=== PATIENT | female | born 1990 | race Caucasian/White ===

== ENCOUNTER 2017-03-21 02:15 | Outpatient (CLI) | payer MEDICAID ==
[~2017-03-21] VITALS: Ht 157.5 cm; Wt 63.0 kg
[~2017-03-21 02:15] MED LIST: ZOF8 PO
[2017-03-21 02:27] VITALS: Ht 157.5 cm; Wt 63.0 kg
[2017-03-21] MEDS ORDERED: PRENAT PO (02:33)
[2017-03-21] MEDS ORDERED: ACET325T33 PO (02:33)
[2017-03-21] MEDS ORDERED: ONDANSETRON 4 MG INJ IV STA (02:51)
[2017-03-21] MEDS ORDERED: LACTATED RINGER'S 1,000 ML IV ONE (03:00)
[2017-03-21 03:14] LABS: ADD SCAN DIFF NO
[2017-03-21 03:34] LABS: ALBUMIN 3.4 g/dl (3.3-4.9)
[2017-03-21 03:35] LABS: POTASSIUM 3.4 mmol/L (3.5-5.1)
[2017-03-21 03:37] LABS: BILIRUBIN,INDIRECT 0.4 mg/dl (0-1.1); BILIRUBIN,TOTAL 0.4 mg/dl (0.2-1.3); CREATININE 0.48 mg/dl (0.44-1.00); TOTAL PROTEIN 6.8 g/dl (6.1-8.1)
[2017-03-21 03:38] LABS: CALCIUM 8.7 mg/dl (8.4-10.2)
[2017-03-21 03:54] LABS: URINE BILIRUBIN (Dip) NEGATIVE (NEGATIVE); URINE BLOOD (Dip) NEGATIVE (NEGATIVE); URINE COLOR LT. YELLOW (YELLOW); URINE GLUCOSE (Dip) NEGATIVE (NEGATIVE); URINE KETONES (Dip) NEGATIVE (NEGATIVE); URINE LEUKOCYTE ESTERASE (Dip) NEGATIVE (NEGATIVE); URINE NITRITE (Dip) NEGATIVE (NEGATIVE); URINE UROBILINOGEN (Dip) 0.2 E.U./dL (0.1-1.0)
[2017-03-21 03:59] LABS: ADD UMIC NO; URINE TOTAL PROTEIN (Dip) NEGATIVE (NEGATIVE)
[2017-03-21 04:00] LABS: BASOPHILS % 0.1 % (0.0-2.0); HEMATOCRIT 33.4 % (37.0-47.0); HEMOGLOBIN 10.7 g/dl (12.0-16.0); LYMPHOCYTES # 0.7 10^3/ul (0.8-2.9); LYMPHOCYTES % 8.9 % (15.0-51.0); MEAN CORPUSCULAR HEMOGLOBIN 26.6 pg (29.0-33.0); MEAN CORPUSCULAR VOLUME 82.9 fl (82.0-101.0); MEAN PLATELET VOLUME 10.3 fl (7.4-10.4); MONOCYTE # 0.5 10^3/ul (0.3-0.9); MONOCYTES % 6.4 % (0.0-11.0); NEUTROPHIL # 6.4 10^3/ul (1.6-7.5); NEUTROPHILS % 84.3 % (39.0-77.0); PLATELET COUNT 284 10^3/UL (140-415); RED BLOOD COUNT 4.03 10^6/ul (4.20-5.40); RED CELL DISTRIBUTION WIDTH 14.1 % (11.5-14.5); WHITE BLOOD COUNT 7.6 10^3/ul (4.8-10.8)
[2017-03-21] MEDS ORDERED: LACTATED RINGER'S 1,000 ML IV SCH (04:00)
--- NOTE | 2017-03-21 04:13 | RADRPT ---
PROCEDURE: ULTRASOUND OBSTETRICAL CLINICAL INDICATION: 26-year-old female with decreased heart tone for amniotic fluid index e valuation. TECHNIQUE: Limited sonographic images of the pelvis were obtained. The images were reviewed on a PACS workstation. COMPARISON: No prior studies are available for comparison. FINDINGS: The cervix is not well visualized. There is a single viable intrauterine gestation. Cardiac activi ty is present with 168 beats per minute. There is a vertex presentation. The placenta is anterior. There is no evidence for an abruption or placenta previa. There is a normal amount of amniotic fluid with an NICOLLE = 15.6 cm. IMPRESSION: 1. Single viable intrauterine gestation with vertex presentation. 2. The amniotic fluid index equals 15.6 cm. .Nolberto Muro MD, Date Time Electronically viewed and signed by .Nolberto Muro MD, on 03/21/2017 04:12 .M/
[2017-03-21] MEDS ORDERED: ACETAMINOPHEN 1000MG/100ML IV 100 ML IVPB ONE (05:00)
--- NOTE | 2017-03-21 08:13 | TRIAGE ---
OB Triage Datetime Report Generated by CPN: 03/21/2017 08:13 Datetime: 03/21/2017 07:21 Stage of : OB Triage Labor Evaluation Frequency: NONE Monitor Mode: External Heart Rate FHR Baseline Rate: 150 Monitor Mode: External US Variability: Moderate 6-25 bpm Accelerations: 15X15 Decelerations: None Category: Category I Pain Assessment Pain Scale: 0 Pain Presence: None/Denies Pain Type: N/A Pain Goal: 0 Datetime: 03/21/2017 06:52 Stage of : OB Triage Labor Evaluation Frequency: NONE Monitor Mode: External Heart Rate FHR Baseline Rate: 155 Monitor Mode: External US Variability: Moderate 6-25 bpm Accelerations: 15X15 Decelerations: None Category: Category I Datetime: 03/21/2017 06:00 Stage of : OB Triage Labor Evaluation Frequency: NONE Monitor Mode: External Heart Rate FHR Baseline Rate: 160 Monitor Mode: External US Variability: Moderate 6-25 bpm Accelerations: 15X15 Decelerations: None Category: Category I Datetime: 03/21/2017 05:05 Stage of : OB Triage Labor Evaluation Frequency: NONE Monitor Mode: External Heart Rate FHR Baseline Rate: 180 Monitor Mode: External US FHR Baseline Changes: Tachycardia Variability: Moderate 6-25 bpm Accelerations: 15X15 Decelerations: None Category: Category II Datetime: 03/21/2017 04:54 Stage of : OB Triage Datetime: 03/21/2017 04:38 Stage of : OB Triage Labor Evaluation Frequency: NONE Monitor Mode: External Heart Rate FHR Baseline Rate: 200 Monitor Mode: External US FHR Baseline Changes: Tachycardia Variability: Moderate 6-25 bpm Accelerations: 15X15 Decelerations: None Category: Category II Datetime: 03/21/2017 04:31 Stage of : OB Triage Datetime: 03/21/2017 04:22 Stage of : OB Triage Temperature Route: Oral Datetime: 03/21/2017 04:05 Stage of : OB Triage Labor Evaluation Frequency: NONE Monitor Mode: External Monitor Mode: External US Datetime: 03/21/2017 03:35 Stage of : OB Triage Temperature Route: Oral Labor Evaluation Frequency: NONE Monitor Mode: External Monitor Mode: External US Datetime: 03/21/2017 03:01 Time of Arrival: 03/21/2017 02:15 EGA: 27.5 Arrived By: Wheelchair Arrived From: Home Chief Complaint: Abdominal pain. that comes and goes lasting 20 minutes at a time. Movement: Present Contractions: Denies/Absent Rupture of Membranes: Denies Vaginal Bleeding: None Vaginal Discharge: Denies Recent Sexual Intercouse: Denies Abdominal Trauma: Not Applicable Patient Complaints: Back Pain; Nausea; Vomiting; Pain on Urination; Fever; Other Additional Patient Complaints: Burning on urination, chills, N/V/D. Temp was 100.0 at home. Pt too k Tylenol 325mg PO at 0130 Time Provider Notified: 03/21/2017 02:45 Provider Notified: Dr. Taylor Initial Plan: CEFM Datetime: 03/21/2017 03:00 Labor Evaluation Frequency: NONE Monitor Mode: External Resting Tone Riggins: Relaxed Heart Rate FHR Baseline Rate: 175 FHR Baseline Changes: Tachycardia Variability: Minimal - Undetectable to <=5 bpm Accelerations: None Decelerations: None Category: Category II Datetime: 03/21/2017 02:28 Stage of : OB Triage Assessment Type: Triage Maternal Assessment Level of Consciousness: Fully Conscious DTR's/Clonus: DTRs 2+; No Clonus Headache: Denies Blurred Vision: No Respiratory Effort: Unlabored; Regular Rhythm; Equal Expansion Breath Sounds, Left: Clear and Equal Breath Sounds, Right: Clear and Equal Nausea/Vomiting: Hx of Nausea/Vomiting RUQ Epigastric Pain: Denies Lower Extremities Edema: None Degree: None Upper Extremities Edema: None Degree: None Facial Edema: None Temperature Route: Oral Fall Risk Assessment History of Falling: (0) No Secondary Diagnosis: (0) No Ambulatory Aid: (0) Bedrest/Nurse Assist IV Therapy: (0) No Gait: (0) Normal/Bedrest/Immobile Mental Status: (0) Oriented to Own Ability Fall Score: 0 Fall Risk Score Definition: No Risk: No action required Pain Assessment Pain Scale: 5 Pain Presence: Intermittent Pain Type: Sharp; Stabbing Pain Location: Abdomen; Back; Right Flank
--- NOTE | 2017-03-21 08:16 | CONS ---
Date/Time of Note Date/Time of Note DATE: 03/21/17 TIME: 08:02 Consultation Date/Type/Reason Admit Date/Time March 21, 2017 OB triage consult Reason for Consultation This patient is a 26 years old primigravida with estimated date of confinement June 15, 2017 which makes her 27 weeks and 5 days now She came to the triage area complaining of chills abdominal pain slight burning of urination as well as diarrhea and vomiting since 1300 yesterday she says she could not each since then On general examination she appeared a well-developed well-nourished lady in her mid her vital signs appear to be normal blood pressure 117 /73 pulse rate 123 respiration 24 temperature about 2 hours ago was 98.4 and then again later was 98.6 with saturation of 99 Her ear nose throat appear to be neck was normal no tenderness no adenopathy chest was clear no rales heart was normal rate was somewhat rapid Hx of Present Illness On the laboratory study CBC showed some degree of mild anemia with hemoglobin of 10.7 hematocrit of 33.4 WBC was normal 7.6 and platelets of 284,000 urinalysis was basically negative no evidence of infection electrolytes and liver function tests were normal potassium was slightly low 3.4 on ultrasound study there was a single viable intrauterine gestation in vertex presentation heartbeat of 168 no evidence of placenta previa or abruption the NICOLLE was reported as 15.6 centimeters Laboratory Tests Test 03/21/17 02:20 03/21/17 02:45 Urine Color LT. YELLOW Urine Clarity CLEAR Urine pH >=9.0 Urine Specific Craig 1.015 Urine Ketones NEGATIVE Urine Nitrite NEGATIVE Urine Bilirubin NEGATIVE Urine Urobilinogen 0.2 E.U./dL Urine Leukocyte Esterase NEGATIVE Urine Hemoglobin NEGATIVE Urine Glucose NEGATIVE% Urine Total Protein NEGATIVE White Blood Count 7.610^3/ul Red Blood Count 4.0310^6/ul Hemoglobin 10.7g/dl Hematocrit 33.4% Mean Corpuscular Volume 82.9fl Mean Corpuscular Hemoglobin 26.6pg Mean Corpuscular Hemoglobin Concent 32.0g/dl Red Cell Distribution Width 14.1% Platelet Count 72902^3/UL Mean Platelet Volume 10.3fl Neutrophils % 84.3% Lymphocytes % 8.9% Monocytes % 6.4% Eosinophils % 0.0% Basophils % 0.1% Nucleated Red Blood Cells % 0.0/100WBC Neutrophils # 6.410^3/ul Lymphocytes # 0.710^3/ul Monocytes # 0.510^3/ul Eosinophils # 0.010^3/ul Basophils # 0.010^3/ul Nucleated Red Blood Cells # 0.010^3/ul Sodium Level 136mmol/L Potassium Level 3.4mmol/L Chloride Level 102mmol/L Carbon Dioxide Level 22mmol/L Anion Gap 15 Blood Urea Nitrogen 6mg/dl Creatinine 0.48mg/dl Glucose Level 89mg/dl Calcium Level 8.7mg/dl Total Bilirubin 0.4mg/dl Direct Bilirubin 0.00mg/dl Indirect Bilirubin 0.4mg/dl Aspartate Amino Transf (AST/SGOT) 19IU/L Alanine Aminotransferase (ALT/SGPT) 28IU/L Alkaline Phosphatase 76IU/L Total Protein 6.8g/dl Albumin 3.4g/dl Globulin 3.40g/dl Albumin/Globulin Ratio 1.00 Current Medications Medications (Trade) Dose Ordered Sig/[place] Route PRN Reason Start Time Stop Time Status Last Admin Dose Admin Lactated Ringer's 1,000 ml @ 1,000 mls/hr Q1H ONCE IV 03/21/17 03:00 03/21/17 03:59 DC 03/21/17 03:00 1,000 MLS/HR Lactated Ringer's (Lr) 1,000 ml @ 125 mls/hr Q8H IV 03/21/17 04:00 03/21/17 04:10 125 MLS/HR Ondansetron HCl 4 mg 4 mg ONCE STAT IV 03/21/17 02:51 03/21/17 03:02 DC Acetaminophen (Ofirmev 1000mg/ 100ml Iv) 100 ml @ 400 mls/hr ONCE ONCE IVPB 03/21/17 05:00 03/21/17 05:14 DC 03/21/17 04:54 400 MLS/HR Constitutional: other (Complaining of slight headache and body ache), No chills, No diaphoresis, No disoriented, No febrile, No improved, No no complaints, No poor po, No requiring IVF, No requiring O2 Eyes: No discharge, No no complaints, No other, No pain, No redness, No visual change ENT: other (No evidence of true pharyngitis), No bleeding, No congestion, No discharge, No dysphagia, No no complaints, No pain, No sore throat Respiratory: other (No lungs are clear), No cough, No no complaints, No pain, No pleuritic pain, No shortness of breath, No sputum, No wheezing Cardiovascular: other (Pulse rate 122), No chest pain, No edema, No lightheadedness, No no complaints, No orthopenea , No palpitations, No paroxysmal nocturnal dyspnea Gastrointestinal: nausea (Had slight nausea), No blood, No constipation, No decreased appetite, No diarrhea, No flatus, No no complaints, No other, No pain, No passing stool, No vomiting Genitourinary: other (No dysuria), No bleeding, No discharge, No dysuria, No flank pain, No hematuria, No no complaints Musculoskeletal: back pain, neck pain (Slight back and neck pain), other (With general malaise), No bone/joint pain, No no complaints, No restricted range of motion, No swelling Skin: No bruising, No erythema, No laceration, No no complaints, No other, No pruritis, No rash, No skin lesions Neurologic: No confusion, No dizziness, No focal-weakness, No headache, No no complaints, No other, No seizure, No syncope Endocrine: No dry skin, No no complaints, No other, No polydypsia, No polyuria , No temp intolerance Lymphatic: No adenopathy, No lymphadema, No no complaints, No other, No tender nodes Psychological: No anxiety, No confusion, No depression, No nl mood/affect, No no complaints, No other, No suicidal Additional Comments Patient was given Tylenol 325 mg as well as IV bolus and Zofran she felt much better and was discharged home to rest and to follow her obstetrical care with Dr. Lopez in her office end of dictation Social History Smoking Status: Never smoker Exam/Review of Systems Results Result Diagram: 03/21/17 0245 03/21/17 0245 Results 24 hrs Laboratory Tests Test 03/21/17 02:20 03/21/17 02:45 Urine Color LT. YELLOW Urine Clarity CLEAR Urine pH >=9.0 Urine Specific Craig 1.015 Urine Ketones NEGATIVE Urine Nitrite NEGATIVE Urine Bilirubin NEGATIVE Urine Urobilinogen 0.2 E.U./dL Urine Leukocyte Esterase NEGATIVE Urine Hemoglobin NEGATIVE Urine Glucose NEGATIVE Urine Total Protein NEGATIVE White Blood Count 7.6 Red Blood Count 4.03 L Hemoglobin 10.7 L Hematocrit 33.4 L Mean Corpuscular Volume 82.9 Mean Corpuscular Hemoglobin 26.6 L Mean Corpuscular Hemoglobin Concent 32.0 Red Cell Distribution Width 14.1 Platelet Count 284 Mean Platelet Volume 10.3 Neutrophils % 84.3 H Lymphocytes % 8.9 L Monocytes % 6.4 Eosinophils % 0.0 Basophils % 0.1 Nucleated Red Blood Cells % 0.0 Neutrophils # 6.4 Lymphocytes # 0.7 L Monocytes # 0.5 Eosinophils # 0.0 Basophils # 0.0 Nucleated Red Blood Cells # 0.0 Sodium Level 136 Potassium Level 3.4 L Chloride Level 102 Carbon Dioxide Level 22 Anion Gap 15 Blood Urea Nitrogen 6 L Creatinine 0.48 Glucose Level 89 Calcium Level 8.7 Total Bilirubin 0.4 Direct Bilirubin 0.00 Indirect Bilirubin 0.4 Aspartate Amino Transf (AST/SGOT) 19 Alanine Aminotransferase (ALT/SGPT) 28 Alkaline Phosphatase 76 Total Protein 6.8 Albumin 3.4 Globulin 3.40 H Albumin/Globulin Ratio 1.00 Medications Medications Current Medications Lactated Ringer's (Lr) 1,000 ml @ 125 mls/hr Q8H IV Last administered on t 04:10; Admin Dose 125 MLS/HR; Start 03/21/17 at 04:00 CLEMENT GONZÁLES MD March 21, 2017 08:13
== END 2017-03-21 08:05 | disposition home or self-care (01) ==
LOC: L-D 02:15 → OBT 02:15
PROVIDERS: ATTEND Obstetrics & Gynecology
DX: O26.892 Other specified pregnancy related conditions, second trimester (principal); R68.83 Chills (without fever); R10.9 Unspecified abdominal pain; R30.0 Dysuria; R19.7 Diarrhea, unspecified; O21.0 Mild hyperemesis gravidarum; Z3A.27 27 weeks gestation of pregnancy
CPT/HCPCS: 76815; 80053; 81003; 85025; J0131; J7120; 36415; 96360; 96361; 96374; G0463

== ENCOUNTER 2017-06-08 06:00 | Inpatient (IN) | payer MEDICAID ==
[~2017-06-08] VITALS: Ht 162.6 cm; Wt 82.7 kg
[~2017-06-08 06:00] MED LIST changes: +ACET325T33 PO; +PRENAT PO
[2017-06-08 06:42] VITALS: Ht 162.6 cm; Wt 82.7 kg
[2017-06-08] MEDS ORDERED: METHYLERGONOVINE 0.2 MG INJ IM PRN (07:00)
[2017-06-08] MEDS ORDERED: MISOPROSTOL 200 MCG TAB PR PRN (07:00)
[2017-06-08] MEDS ORDERED: OXYTOCIN 30 UNITS/LR 500 ML IV SCH ×3 (07:00→09:00)
[2017-06-08] MEDS ORDERED: LACTATED RINGER'S 1,000 ML IV PRN (07:00)
[2017-06-08] MEDS ORDERED: LIDOCAINE 1% (MPF) 30 ML INJ INJ PRN (07:00)
[2017-06-08] MEDS ORDERED: BUTORPHANOL 2 MG INJ IV PRN (07:00)
[2017-06-08] MEDS ORDERED: CARBOPROST 250 MCG INJ IM PRN (07:00)
[2017-06-08] MEDS ORDERED: OXYTOCIN 30 UNITS/LR 500 ML IV PRN (07:00)
[2017-06-08] MEDS ORDERED: IBUPROFEN 600 MG TAB PO PRN (07:00)
[2017-06-08 07:35] VITALS: BP 115/72; PULSE 82; RESP 18
[2017-06-08 07:35] LABS: BASOPHILS % 0.4 % (0.0-2.0); EOSINOPHILS # 0.1 10^3/ul (0.0-0.5); EOSINOPHILS % 0.8 % (0.0-7.0); HEMATOCRIT 34.1 % (37.0-47.0); HEMOGLOBIN 11.1 g/dl (12.0-16.0); LYMPHOCYTES # 1.7 10^3/ul (0.8-2.9); LYMPHOCYTES % 23.4 % (15.0-51.0); MEAN CORPUSCULAR HEMOGLOBIN 26.7 pg (29.0-33.0); MEAN CORPUSCULAR HGB CONC 32.6 g/dl (32.0-37.0); MEAN PLATELET VOLUME 11.1 fl (7.4-10.4); MONOCYTE # 0.7 10^3/ul (0.3-0.9); MONOCYTES % 9.1 % (0.0-11.0); NEUTROPHIL # 4.7 10^3/ul (1.6-7.5); NEUTROPHILS % 65.9 % (39.0-77.0); PLATELET COUNT 224 10^3/UL (140-415); RED BLOOD COUNT 4.16 10^6/ul (4.20-5.40); RED CELL DISTRIBUTION WIDTH 14.6 % (11.5-14.5); WHITE BLOOD COUNT 7.1 10^3/ul (4.8-10.8)
[2017-06-08 08:00] LABS: INR 0.88; PARTIAL THROMBOPLASTIN TIME 28.1 Sec (25.0-35.0); PROTIME 11.9 Sec (12.2-14.2); PT RATIO 0.9
[2017-06-08] MEDS ORDERED: NA PHOSPHATE/BIPHOS 133 ML ENEMA PR ONE (09:00)
[2017-06-08] MEDS ORDERED: MINERAL OIL LIGHT 10 ML VIAL TOP PRN (09:00)
[2017-06-08] MEDS: LACTATED RINGER'S 1,000 ML IV SCH ×3 (09:11→19:54)
[2017-06-08] MEDS ORDERED: FENTAnyl 2MCG/ML-ROPIV 0.2% 100 ML ONE (13:26)
[2017-06-08] MEDS ORDERED: NALOXONE (0.4 MG/ML) INJ IV PRN (14:00)
[2017-06-08] MEDS ORDERED: ONDANSETRON 4 MG INJ IV PRN (14:00)
[2017-06-08] MEDS: FENTAnyl 2MCG/ML-ROPIV 0.2% 100 ML BAG EPI SCH ×2 (14:11→20:24)
--- NOTE | 2017-06-08 23:43 | LDN ---
Date/Time of Note Date/Time of Note DATE: 06/08/17 TIME: 23:39 Delivery Summary of a viable baby boy weighing 3315 grams, or 7# 5 ounces, 20" long, and with Apgars of 9/9. Weeks of Gestation 39w Placenta Delivered: Spontaneously Meconium: none Episiotomy: No Perineal laceration: 2 Laceration repair: Second degree perineal laceration repaired with 2-0 chromic. Anesthesia type: Epidural Estimated blood loss: 300 Sponge & Needle done & correct: Yes All needle counts correct: Yes Any foreign bodies felt in the: No (vagina) Problems: Delivery Information Sex Infant Sex: male Apgars 1 Minute: 9 5 Minute: 9 Suctioning Nose & mouth suctioned at eda: Yes Delee suction performed: No Umbilical Cord Umbilical cord with: 3 Vessels Cord presentations: nuchal cord Nuchal cord present X: 1 Cord Blood was obtained: Yes Mother & Baby Disposition Disposition Mom & Baby to Maternity; Good: Yes Baby to NICU: No ELISA MARTINES MD Jun 08, 2017 23:43
--- NOTE | 2017-06-08 23:46 | HP ---
Date/Time of Note Date/Time of Note DATE: 06/08/17 TIME: 23:43 OB - History Hx of Present Free Text/Dictation 27 y.o. G1 with an IUP at 39 weeks admitted today for induction of labor. Last Menstrual Period: Aug 28, 2016 Estimated Due Date: Jun 15, 2017 : 1 Para: 0 Care: Good Care Ultrasounds: Normal mid trimester US Obstetrical Complications: None Medical Complications: None Past Family/Social History * Past Medical, Surgical, Family and Obstetric Histories reviewed from chart. Blood Type: A+ Rubella: immune RPR/VDRL: Negative GBS Status: Negative HBsAG: Negative OB Admission Exam Vital Signs Vital Signs Vital Signs Date Time Temp Pulse Resp B/P Pulse Ox O2 Delivery O2 Flow Rate FiO2 06/08/17 07:35 98.1 82 18 115/72 Room Air Physical Exam HEENT: WNL Heart: Rhythm Normal Lungs: Clear Abdomen: WNL Extremities: Normal Reflexes: Normal Cervical Dilatation: 4cm Effacement: 75% Station: -2 Membranes: Intact Amniotic Fluid: Clear Heart Rate: 140's Accelerations: Accelerations Present Decelerations: No Decelerations Varibility: Moderate Contractions on Admission: < 5 Minutes Apart Intensity: Mild Last 72 hours Lab Results CBC & BMP 06/08/17 07:04 OB Assessment/Plan Reason for admission: induction of labor Plan: Induction Induction Method: per Pitocin Protocol ELISA MARTINES MD Jun 08, 2017 23:46
[2017-06-09] MEDS ORDERED: MISOPROSTOL 200 MCG TAB PR PRN
[2017-06-09] MEDS ORDERED: CARBOPROST 250 MCG INJ IM PRN
[2017-06-09] MEDS ORDERED: OXYTOCIN 30 UNITS/LR 500 ML IV PRN
[2017-06-09] MEDS ORDERED: OXYCODONE/ASPIRIN (4.88/325) TAB PO PRN
[2017-06-09] MEDS ORDERED: METHYLERGONOVINE 0.2 MG INJ IM PRN
[2017-06-09] MEDS ORDERED: BENZOCAINE 20% 56 ML SPRAY TOP PRN
[2017-06-09] MEDS: OXYTOCIN 30 UNITS/LR 500 ML IV SCH ×2 (00:10→03:27)
[2017-06-09] MEDS: IBUPROFEN 600 MG TAB PO SCH ×5 (00:40→23:56)
[2017-06-09 01:30] VITALS: BP 103/62; PULSE 84; RESP 20
[2017-06-09] MEDS: LANOLIN 7 GM TUBE TOP PRN (03:00)
[2017-06-09 04:00] VITALS: BP 123/71
[2017-06-09 07:40] VITALS: BP 105/64; PULSE 86; RESP 16
[2017-06-09 11:40] LABS: RUBELLA ANTIBODY - IGG 1.38 index
[2017-06-09 12:00] VITALS: BP 116/78; PULSE 85; RESP 18
[2017-06-09 16:02] VITALS: BP 116/79; PULSE 75; RESP 18
[2017-06-09 19:20] VITALS: BP 126/71; PULSE 84; RESP 19
--- NOTE | 2017-06-09 23:27 | PD.PPDC ---
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
--- NOTE | 2017-06-09 23:33 | DS ---
Date/Time of Note Date/Time of Note DATE: 06/09/17 TIME: 23:29 Obstetrical Discharge Record Final Diagnosis Final Diagnosis: Term delivered Vaginal Delivery Obstetrical Delivery: Spontaneous, Laceration, Repaired Complications Augmentation: No Induction: Yes Rupture of Membranes: No Condition on Discharge Physical Assessment Last Vitals: T=98.5 BP 126/71 Voiding: Yes Bowel Movement: Yes Breast: Soft, non-tender Fundus: Firm Calf Tenderness: No Patient Condition: Good ELISA MARTINES MD Jun 09, 2017 23:33
[2017-06-10] MEDS: IBUPROFEN 600 MG TAB PO SCH ×3 (05:31→17:49)
[2017-06-10 07:15] LABS: BASOPHILS % 0.3 % (0.0-2.0); EOSINOPHILS # 0.2 10^3/ul (0.0-0.5); EOSINOPHILS % 1.6 % (0.0-7.0); HEMATOCRIT 31.5 % (37.0-47.0); HEMOGLOBIN 9.9 g/dl (12.0-16.0); LYMPHOCYTES # 2.6 10^3/ul (0.8-2.9); MEAN CORPUSCULAR HEMOGLOBIN 26.1 pg (29.0-33.0); MEAN CORPUSCULAR HGB CONC 31.4 g/dl (32.0-37.0); MEAN CORPUSCULAR VOLUME 82.9 fl (82.0-101.0); MEAN PLATELET VOLUME 11.2 fl (7.4-10.4); MONOCYTE # 0.6 10^3/ul (0.3-0.9); MONOCYTES % 6.4 % (0.0-11.0); NEUTROPHIL # 6.1 10^3/ul (1.6-7.5); NEUTROPHILS % 64.4 % (39.0-77.0); PLATELET COUNT 184 10^3/UL (140-415); RED CELL DISTRIBUTION WIDTH 15.2 % (11.5-14.5); WHITE BLOOD COUNT 9.5 10^3/ul (4.8-10.8)
[2017-06-10 08:00] VITALS: BP 125/69; PULSE 67; RESP 18
[2017-06-10] MEDS ORDERED: DIPHTH/TET/ACEL PERTUSS (ADULT) 0.5 ML VIAL IM* ONE (09:00)
[2017-06-10 16:05] VITALS: BP 126/77; PULSE 67; RESP 18
[2017-06-10] MEDS: LANOLIN 7 GM TUBE TOP PRN (18:10)
== END 2017-06-10 18:30 | disposition home or self-care (01) | DRG 775 ==
LOC: L-D 06:32 → PP1 06-09 01:33
PROVIDERS: ADMIT Obstetrics & Gynecology; ATTEND Obstetrics & Gynecology
PROC: 0KQM0ZZ Repair Perineum Muscle, Open Approach (ICD-10-PCS; 2017-06-08)
PROC: 10E0XZZ Delivery of Products of Conception, External Approach (ICD-10-PCS; principal; 2017-06-08 06:00)
PROC: 3E0234Z Introduction of Serum, Toxoid and Vaccine into Muscle, Percutaneous Approach (ICD-10-PCS; 2017-06-10)
DX: O70.1 Second degree perineal laceration during delivery (principal); Z37.0 Single live birth; Z23 Encounter for immunization; Z3A.39 39 weeks gestation of pregnancy
CPT/HCPCS: 62319; 85025; 85610; 85730; 86592; 86703; 86762; 86900; 86901; 90715; J2405; J2590; J3010; J7120

== ENCOUNTER 2017-06-16 14:09 | Emergency (ER) | payer MEDICAID ==
[~2017-06-16] VITALS: Ht 162.6 cm; Wt 73.0 kg
[~2017-06-16 14:09] MED LIST changes: -ACET325T33 PO; -ZOF8 PO
[2017-06-16 14:17] VITALS: Ht 162.6 cm; Wt 73.0 kg
[2017-06-16 16:26] LABS: URINE BLOOD (Dip) POC 2+ (NEGATIVE)
[2017-06-16] MEDS ORDERED: CEPH-443 PO (16:36)
[2017-06-16] MEDS ORDERED: ACET500C5 PO (16:38)
--- NOTE | 2017-06-16 16:45 | ERD ---
ER Documentation Chief Complaint Date/Time DATE: 06/16/17 TIME: 16:40 Chief Complaint 6 DAYS POST WITH PAINFUL VAGINA AND PAINFUL URINATION HPI Patient is a 27-year-old female presents emergency department for concerns of vaginal pain and dysuria. Patient had a vaginal delivery 6 days ago without any complications. Patient is . Patient reports pain at her episiotomy site. Patient denies any fevers, chills, nausea, vomiting. Patient is currently breast-feeding her child. She does also report frequency and urgency. Patient denies any hematuria or flank pain. Patient denies any thoughts of depression. Patient does report a good family support system. ROS All systems reviewed and are negative except as per history of present illness. Medications Home Meds Active Scripts Acetaminophen* (Tylophen*) 500 Mg Capsule, 1 CAP PO Q6H Y for PAIN AND OR ELEVATED TEMP, #20 CAP Prov:RONI JUAREZ PA-C 06/16/17 Cephalexin* (Keflex*) 500 Mg Capsule, 500 MG PO TID for 7 Days, CAP Prov:RONI JUAERZ PA-C 06/16/17 Reported Medications Multivit/Min/Fol Ac/Iron/Pren* ( S*) 1 Tab Tab, 1 TAB PO DAILY, TAB 03/21/17 Allergies Allergies: Coded Allergies: No Known Allergy (Unverified , 03/21/17) PMhx/Soc History of Surgery: No Anesthesia Reaction: No Hx Neurological Disorder: No Hx Respiratory Disorders: No Hx Cardiac Disorders: No Hx Psychiatric Problems: No Hx Miscellaneous Medical Probl: Yes (POST ) Hx Alcohol Use: No Hx Substance Use: No Hx Tobacco Use: No Smoking Status: Never smoker Physical Exam Vitals Vital Signs Date Time Temp Pulse Resp B/P Pulse Ox O2 Delivery O2 Flow Rate FiO2 06/16/17 14:17 98.4 105 18 128/85 99 Physical Exam GENERAL: Well-developed, well-nourished female. Appears in no acute distress. HEAD: Normocephalic, atraumatic. EYES: Pupils are equally reactive bilaterally. EOMs grossly intact. No conjunctival erythema. ENT: Moist mucous membranes. No uvula deviation. No kissing tonsils. NECK: Supple. No meningismus. Normal range of motion of the neck. LUNG: Clear to auscultation bilaterally. No rhonchi, wheezing, rales or coarse breath sounds. HEART: Regular rate and rhythm. No murmurs, rubs or gallops. ABDOMEN: Soft, nontender, and nondistended. Positive bowel sounds in all four quadrants. No rebound tenderness, no guarding. (-) McBurney's point tenderness. No CVA tenderness. FEMALE GENITALIA: Normal external female genitalia. Labial folds erythematous. No active bleeding. No wound dehiscence. Previous incisions appear to be healing well. EXTREMITIES: Equal pulses bilaterally. No peripheral clubbing, cyanosis or edema. No unilateral leg swelling. NEUROLOGIC: Alert and oriented. Moving all four extremities without any difficulty. Normal speech. Steady gait. SKIN: Normal color. Warm and dry. No rashes or lesions. Results 24 hrs Laboratory Tests Test 06/16/17 16:33 Bedside Urine pH (LAB) 7.5 Bedside Urine Protein (LAB) Negative Bedside Urine Glucose (UA) Negative Bedside Urine Ketones (LAB) Negative Bedside Urine Blood 2+ Bedside Urine Nitrite (LAB) Negative Bedside Urine Leukocyte Esterase (L 3+ Procedures/MDM MEDICAL DECISION MAKING: This is a 27-year-old female presents for concerns of vaginal pain postdelivery and dysuria. She reports normal vaginal delivery 6 days ago. He denies any fevers, chills, nausea, vomiting or abdominal pain. Vital signs were reviewed. Patient was afebrile. Urine dip did show 3+ leukocyte esterase. Physical exam findings did not suggest any deep space infections, wound dehiscence, or poor wound healing. Given these findings, the patients presentation is most consistent with urinary tract infection. I have a much lower clinical concern for pyelonephritis, nephrolithiasis, appendicitis, diverticulitis, constipation , BV, wound dehiscence, deep space infection, cellulitis or abscess formation. PRESCRIPTIONS: Keflex Patient was advised to take Tylenol for any pain. DISCHARGE: At this time, patient is stable for discharge and outpatient management. I have instructed the patient to follow-up with her primary care physician/OBGYN in 1- 2 days. Patient should repeat UA in 2 weeks to check for resolution of urinary tract infection. If symptoms persist, patient may need to see a specialist for further examinations and testing. I have instructed the patient to promptly return to the ER at any time for any new or worsening symptoms including increased pain, fever, nausea, vomiting, urinary changes or weakness. The patient and/or family expressed understanding of and agreement with this plan. All questions were answered. Home care instructions were provided. Departure Diagnosis: Primary Impression: UTI (urinary tract infection) Urinary tract infection type: site unspecified Hematuria presence: with hematuria Qualified Code: N39.0 - Urinary tract infection with hematuria, site unspecified Condition: Stable Patient Instructions: Understanding Urinary Tract Infections (UTIs) Referrals: ELISA MARTINES MD (PCP) [facility] [employer]ER REFERRAL LIST Additional Instructions: Call your primary care doctor TOMORROW for an appointment during the next 1-2 days.See the doctor sooner or return here if your condition worsens before your appointment time. Follow up with your OBGYN in 1-2 days. RONI JUAREZ PA-C Jun 16, 2017 16:45
== END 2017-06-16 16:42 | disposition home or self-care (01) ==
LOC: FTE 14:09
DX: O86.20 Urinary tract infection following delivery, unspecified (principal); R10.2 Pelvic and perineal pain; B96.89 Other specified bacterial agents as the cause of diseases classified elsewhere
CPT/HCPCS: 81003; Z7502; 99284